=== PATIENT | male | born 1975 | race Caucasian/White ===

== ENCOUNTER 2018-12-23 15:52 | Emergency (ER) | payer BC ==
[~2018-12-23] VITALS: Ht 177.8 cm; Wt 108.9 kg
[~2018-12-23 15:52] MED LIST: MAXALT MLT10 MG PO; PROTONIX 20 MG20 M1 PO; SUDAFED PE SIN1 EACH PO; TRAZODONE HCL100 MG PO
[2018-12-23] MEDS ORDERED: RANITIDINE 150150 M1 PO (16:04)
[2018-12-23] MEDS ORDERED: ZOLOFT50 MG PO (16:05)
[2018-12-23] MEDS ORDERED: HYDROXYZINE HCL25 M1 PO (16:05)
[2018-12-23 16:34] LABS: ABSOLUTE BASOPHILS 0.1 thou/uL (0.0-0.2); ABSOLUTE EOSINOPHILS 0.1 thou/uL (0.0-0.7); ABSOLUTE LYMPHOCYTES 1.9 thou/uL (0.8-5.3); ABSOLUTE MONOCYTES 0.6 thou/uL (0.0-1.2); ABSOLUTE NEUTROPHILS 5.9 thou/uL (1.6-8.1); BASOPHILS 1.1 %; HEMATOCRIT 42.7 % (42.0-52.0); HEMOGLOBIN 14.5 gm/dL (14.0-18.0); LYMPHOCYTES 21.9 %; MCHC 34.1 g/dL (28.0-37.0); MCV 85.1 fL (80.0-100.0); MONOCYTES 6.5 %; MPV 7.6 fl. (7.2-11.1); NUCLEATED RBCS 0 /100WBC; PLATELET COUNT* 244 thou/uL (150-400); POLYS 69.5 %; RBC 5.02 mil/uL (4.50-6.00); RDW-CV 13.5 % (10.5-14.5); WBC 8.5 thou/uL (4.0-11.0)
[2018-12-23 16:42] LABS: POTASSIUM 3.5 mmol/L (3.5-5.1)
[2018-12-23 16:45] LABS: PROTIME 10.5 Seconds (9.20-11.50)
[2018-12-23 16:46] LABS: ALBUMIN 3.7 g/dL (3.4-5.0); TOTAL BILIRUBIN 0.3 mg/dL (<0.1-1.0)
[2018-12-23 17:29] VITALS: BP 131/86
== END 2018-12-23 17:30 | disposition home or self-care (01) ==
LOC: M.ERS 15:52
PROVIDERS: Nurse Practitioner Family
DX: S80.12XA Contusion of left lower leg, initial encounter (principal); K21.9 Gastro-esophageal reflux disease without esophagitis; G43.909 Migraine, unspecified, not intractable, without status migrainosus; Z86.718 Personal history of other venous thrombosis and embolism; Z88.8 Allergy status to other drugs, medicaments and biological substances; X58.XXXA Exposure to other specified factors, initial encounter; Y93.89 Activity, other specified; Y92.89 Other specified places as the place of occurrence of the external cause; Y99.8 Other external cause status

== ENCOUNTER 2021-05-03 19:02 | Emergency (ER) | payer BC ==
[~2021-05-03] VITALS: Ht 177.8 cm; Wt 104.3 kg
[~2021-05-03 19:02] MED LIST changes: +HYDROXYZINE HCL25 M1 PO; +RANITIDINE 150150 M1 PO; +ZOLOFT50 MG PO
[2021-05-03] MEDS ORDERED: FAMOTIDINE 40 M40 M1 PO (19:10)
[2021-05-03] MEDS ORDERED: SERTRALINE HCL100 MG PO (19:11)
[2021-05-03] MEDS ORDERED: LIPITOR10 MG PO (19:11)
[2021-05-03] MEDS ORDERED: BUSPIRONE HCL5 MG PO (19:11)
[2021-05-03] MEDS ORDERED: CEPHALEXIN500 MG PO (21:14)
[2021-05-03 21:25] VITALS: BP 125/79
== END 2021-05-03 21:26 | disposition home or self-care (01) ==
LOC: M.ERS 19:02
DX: S61.210A Laceration without foreign body of right index finger without damage to nail, initial encounter (principal); K21.9 Gastro-esophageal reflux disease without esophagitis; G43.909 Migraine, unspecified, not intractable, without status migrainosus; Z88.6 Allergy status to analgesic agent; Z79.899 Other long term (current) drug therapy; Z86.718 Personal history of other venous thrombosis and embolism; W26.0XXA Contact with knife, initial encounter; Y93.89 Activity, other specified; Y92.090 Kitchen in other non-institutional residence as the place of occurrence of the external cause; Y99.9 Unspecified external cause status